=== PATIENT | male | born 1980 | race Caucasian/White ===

== ENCOUNTER 2021-03-02 23:38 | Emergency (ER) | payer BC, SELFPAY ==
[2021-03-02 23:44] VITALS: BP 127/81; PULSE 116; RESP 16; TEMP 37.1; O2SAT 98; BMI 32.6
[2021-03-03] MEDS: Diphth,Pertus(ACell),Tet Adult 0.5 ML SYRINGE IM (00:07)
[2021-03-03] MEDS: Lidocaine HCl 2 % MPF 5 ML VIAL SUBCUT (00:09)
--- NOTE | 2021-03-03 00:15 | ED.WOUNDLAC ---
HPI - Wound/Laceration General Chief Complaint: Wound/Laceration Stated Complaint: Laceration Time Seen by Provider: 03/02/21 23:54 History of Present Illness HPI narrative: The patient was working on his model when he was trying to cut 1 of the pieces and knife slipped and caught his inner left forearm. His last tetanus vaccine was more than 5 years ago. Bleeding controlled. Related Data Allergies Allergy/AdvReac Type Severity Reaction Status Date / Time sulfamethoxazole Allergy Hives Verified 03/02/21 23:49 [From Bactrim] trimethoprim [From Bactrim] Allergy Hives Verified 03/02/21 23:49 Review of Systems Review of Systems: Constitutional : No Weight loss, No Fever, No Chills, No Night Sweats, No Fatigue, No Malaise Cardiovascular : No Chest Pain, No SOB, No Dyspnea on Exertion, No Orthopnea, No Edema, No Palpitations Respiratory : No Cough, No Sputum, No Wheezing, No Smoke Exposure, No Dyspnea Skin : No Skin Lesions, No rash, left forearm 1 cm laceration Neuro : No Weakness, No Numbness, No Paresthesias, No Loss of Consciousness, No Dizziness, No Headache Psych : No Anxiety/Panic, No Depression, No SI/HI/AH/VH, No Social Issues, Heme/Lymph: No Bruising, No Bleeding,No Lymphadenopathy Endocrine : No Polyuria, No Polydipsia, No Temperature Intolerance Yes all other systems are reviewed and are negative [facility] Past Medical History Medical History (Updated 03/03/21 @ 01:02 by Alanna Kaur [facility]) No known health problems Rapid pulse Sleep apnea Social History Social History Smoked in Last 30 Days: No Any prior treatment program specific to substance use: No Advance Directives: No Physical Exam Vital Signs: Vital Signs: Last Vital Signs Temp 98.7 F 03/02/21 23:44 Pulse 116 H 03/02/21 23:44 Resp 16 03/02/21 23:44 BP 127/81 03/02/21 23:44 Pulse Ox 98 03/02/21 23:44 Body Mass Index 32.6 Const: General: cooperative, healthy appearing and comfortable Nutritional Appearance: average body habitus Orientation/consciousness: patient oriented x3 Limitations: no limitations Resp: Effort & Inspection: normal respiratory effort and able to speak in complete sentences Auscultation: clear to auscultation bilaterally Skin: General skin exam: no rashes or lesions noted, elasticity normal and turgor normal Trauma: laceration (Left forearm) Neuro: General: patient oriented x3 Extrem: General: Yes normal to inspection, Yes full ROM and Yes capillary refill normal Psych: Appearance: grossly normal Mental Status: mental status grossly normal Speech and movement: Normal speech and movement present Affect: normal affect Attitude: cooperative Thought process: Normal thought process present Insight: Good insight present (Psych) Course Course Course Narrative: 1.7 cm laceration repaired with 4 sutures. Premedicated with lidocaine subcut. Patient tolerated the procedure well. Bleeding controlled. Area dressed by an RN. Procedures Laceration Left inner forearm laceration: Site: upper extremity Side (If applicable): left Size (cm): 1.7 Description: linear Depth: simple, single layer Local Anesthetic: lidocaine 2% Amount of anesthesia used (mL): 3 Pre-repair: irrigated extensively Skin layer closed with: nylon Size (cm): 5-0 Number of sutures: 4 Technique: simple, interrupted MDM - Wound/Laceration MDM Narrative Medical decision making narrative: Left forearm laceration 1 centimetre. Differential Diagnosis Differential diagnosis: Likely laceration Medical Records Attestation: I reviewed the patient's medical records. Discharge Plan Discharge Clinical Impression: Laceration Patient Disposition: Home, Self-Care Instructions: Laceration (ED) Additional Instructions: You were given a tetanus vaccine. The laceration was closed with 4 stitches. Please return to your primary care doctor or to emergency department to have the stitches removed in 7-10 days. Please keep the area dry and clean. Apply bacitracin. You may return to emergency room sooner if you will have any symptoms of infection or if you will experience any other concerning symptoms. Interventions: ED Discharge Assessment Last Done: 03/03/21 01:05 Discharge Date/Time: 03/03/21 01:10
== END 2021-03-03 01:10 | disposition home or self-care (01) ==
PROVIDERS: Emergency Provider Emergency Medicine Emergency Medical Services
DX: S51.812A Laceration without foreign body of left forearm, initial encounter (principal); W26.0XXA Contact with knife, initial encounter; Y93.D9 Activity, other involving arts and handcrafts; Y92.019 Unspecified place in single-family (private) house as the place of occurrence of the external cause; Y99.8 Other external cause status
CPT/HCPCS: 12002; 90471; 90715; 99284